=== PATIENT | female | born 1985 | race Two or more races ===

== ENCOUNTER 2020-02-23 06:06 | Day surgery (SDC) | payer OTHER | END 2020-02-23 11:35 | disposition home or self-care (01) | LOC: AMB-ENDOS 06:06 | PROVIDERS: ATTEND Surgery | DX: D13.1 Benign neoplasm of stomach (principal); K44.9 Diaphragmatic hernia without obstruction or gangrene; Z20.828 Contact with and (suspected) exposure to other viral communicable diseases ==

== ENCOUNTER 2021-02-12 12:13 | Emergency (ER) | payer OTHER ==
[~2021-02-12] VITALS: Ht 162.6 cm; Wt 115.7 kg
[2021-02-12] MEDS ORDERED: PRENATA CHEWAB1 EACH PO (12:36)
== END 2021-02-12 13:19 | disposition home or self-care (01) ==
LOC: ER 12:13
DX: R06.02 Shortness of breath (principal); R51.9 Headache, unspecified

== ENCOUNTER 2021-03-25 08:30 | Inpatient (IN) | payer OTHER ==
[~2021-03-25] VITALS: Ht 162.6 cm; Wt 3.6 kg
[~2021-03-25 08:30] MED LIST: PRENATA CHEWAB1 EACH PO
== END 2021-04-05 13:24 | disposition home or self-care (01) | DRG 788 ==
LOC: LDR 04-03 07:31 → OB/GYN 04-03 07:31 → LDR 04-03 08:30 → O/R 04-03 14:01 → OB/GYN 04-03 14:19
PROVIDERS: ADMIT Obstetrics & Gynecology; ATTEND Obstetrics & Gynecology
PROC: 4A1HXCZ Monitoring of Products of Conception, Cardiac Rate, External Approach (ICD-10-PCS; 2021-04-03)
PROC: 10D00Z1 Extraction of Products of Conception, Low, Open Approach (ICD-10-PCS; principal; 2021-04-03 12:45)
DX: O82 Encounter for cesarean delivery without indication (principal); Z3A.39 39 weeks gestation of pregnancy; Z37.0 Single live birth; Z20.822 Contact with and (suspected) exposure to COVID-19

== ENCOUNTER 2021-03-25 15:57 | Outpatient (CLI) | payer OTHER | END 2021-03-25 16:35 | disposition home or self-care (01) | LOC: NST 15:57 | PROVIDERS: ATTEND Obstetrics & Gynecology | DX: Z34.83 Encounter for supervision of other normal pregnancy, third trimester (principal) ==

== ENCOUNTER 2021-03-29 10:01 | Outpatient (CLI) | payer OTHER | END 2021-03-29 10:36 | disposition home or self-care (01) | LOC: NST 10:01 | PROVIDERS: ATTEND Obstetrics & Gynecology | DX: Z34.83 Encounter for supervision of other normal pregnancy, third trimester (principal) ==